=== PATIENT | male | born 1980 | race Caucasian/White ===

== ENCOUNTER → 2016-11-26 | Outpatient (CLI) | payer OTHER ==
--- NOTE | ~2016-11-26 | HC ---
[facility] [place] [address] CONSULTATION Name: ALY MASON Room #: REG [facility]#: [id number] Admission: 11/26/16 Attend Phys: Pete Hurtado MD Discharge: Date of : 78 Report #: [id number] THIS REPORT FOR: //name// CC: SALLIE Hurtado DATE OF SERVICE: 11/26/2016 CHIEF COMPLAINT: Nonhealing diabetic wound to the left foot. HISTORY OF PRESENT ILLNESS: This is a 36-year-old male patient with a history of type 2 diabetes mellitus. He is status post right below knee amputation from previous diabetic foot wound and subsequent infection. He developed ulceration sometime ago involving his left foot. He was followed with local wound care and it did not improve. He ultimately developed osteomyelitis of the left foot including the left fifth metatarsal and has undergone debridement and partial amputation of the left foot due to underlying osteomyelitis and ongoing infection. He was seen and operated on by Dr. Sallie Douglas. He is also currently being followed by Infectious Disease, Dr. Julien Khan. The patient was seen in followup from his surgery that occurred in the first week of 10/2016, was noted to have increased swelling and erythema and drainage. There was concern for additional bony abnormality and he has been referred for adjunctive hyperbaric oxygen therapy for his nonhealing Andrade 3 diabetic foot wound in the hopes of salvaging his limb and preventing a second amputation. PAST MEDICAL HISTORY: Positive for history of hypertension as well as a history of diabetes mellitus. MEDICATIONS: Trazodone, Humalog insulin on a sliding scale, Cymbalta and lisinopril. ALLERGIES: None. SOCIAL HISTORY: The patient has never been a smoker and does not drink alcohol. 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 The patient is single. He currently is living with his parents who accompanied him today. FAMILY HISTORY: Really noncontributory. There is no family history for diabetes, known heart disease or kidney disease. REVIEW OF SYSTEMS: CONSTITUTIONAL: The patient denies fever, chills or weight loss other than [facility] [address] [place] [address] CONSULTATION Name: ALY MASON LUCIA Room #: REG [facility] Osiel.#: [id number] Admission: 11/26/16 Attend Phys: Pete Hurtado MD Discharge: Date of : 78 Report #: [id number] planned weight loss due to very strict adherence to his diet. ENT: The patient denies earache, nasal drainage, sore throat. CARDIOVASCULAR: The patient denies chest pain, palpitations or diaphoresis. PULMONARY: The patient denies cough or shortness of breath. GASTROINTESTINAL: The patient denies nausea, vomiting, diarrhea or abdominal pain. GENITOURINARY: The patient has frequency, urgency of urination. Denies dysuria. ORTHOPEDIC: The patient notes he has a right below knee amputation. He has a prosthesis in place at this time. He has a surgical wound to the left foot and has significant neuropathy and does not feel much below his ankle. Other systems in a 13-point review of systems are negative other than that already mentioned in the history of present illness. PHYSICAL EXAMINATION: VITAL SIGNS: Today include height is 69 inches, weight is 382 pounds, BMI is 56.4, temperature 96.6, pulse 82, blood pressure 146/82. Blood glucose is 90 mg/dL. GENERAL: This is a somewhat chronically ill appearing obese male patient who appears to be in no apparent distress. HEENT: Normocephalic. Nose and throat are clear. Tympanic membranes are intact. NECK: Supple. LUNGS: Clear. HEART: Regular. ABDOMEN: Obese, nontender. EXTREMITIES: Examination of the lower extremities demonstrates a right below knee amputation. He has a prosthesis in place and I have not removed it. He has denied that there is any breakdown or problems with that area. Left foot demonstrates a surgical incision with sutures that remain in place. There is separation in the surgical incision line. There is some granulation tissue and a little bit of drainage. There is no obvious odor. There is significant edema and erythema to the left foot with some fullness to palpation throughout the midportion. I am not able to express any specific drainage and I cannot probe to any specific bony structure at this time. His toenails appear to be thickened. There are no plantar ulcerations noted at this time. CLINICAL IMPRESSION: 1. A Andrade 3 diabetic foot wound, status partial amputation of the left foot. 2. Osteomyelitis of the left foot, status post surgical debridement and continued intravenous antibiotic therapy. RECOMMENDATIONS: At this point in time, I think it would be appropriate and recommended to consider a course of hyperbaric oxygen therapy, would recommend an initial course of 20 treatments at 2.0 atmospheres absolute for a total of 90 minutes per treatment. The patient does not have any contraindications to [facility] [address] [place] [address] CONSULTATION Name: ALY MASON Room #: REG [facility]#: [id number] Admission: 11/26/16 Attend Phys: Pete Hurtado MD Discharge: Date of : 78 Report #: [id number] therapy and we have discussed risks and benefits and he would like to proceed along those lines. I would recommend a chest x-ray and EKG prior to initiating the course of therapy. For local wound care, we will recommend topical Christina to the wound base to be covered with 4 x 4 gauze, Kerlix and then an Juanpablo wrap for compression. He is in an offloading boot, which he should continue to use but to minimize ambulation at this time to allow this to heal better. I think the sutures can be left in place for now. There is certainly no evidence of infection along the suture lines or evidence of any overgrowth of the sutures themselves. He is adherent to a fairly strict diet and is watching his blood sugars carefully at home and states that they are reasonably well controlled. We could consider total contact casting in the future. I would like to see some of the swelling improve first. I have discussed all of these details with the patient and family members and have answered all their questions. I appreciate having been asked to see the patient in consultation. <ELECTRONICALLY SIGNED> By: Reymundo Story MD 11/28/16 [id number] Reymundo Story MD /nt
== END ==
LOC: HYPER 07:13
DX: T87.89 Other complications of amputation stump (principal); E11.621 Type 2 diabetes mellitus with foot ulcer; L97.522 Non-pressure chronic ulcer of other part of left foot with fat layer exposed; E11.69 Type 2 diabetes mellitus with other specified complication; M86.8X7 Other osteomyelitis, ankle and foot; I10 Essential (primary) hypertension; Z79.4 Long term (current) use of insulin; Z89.511 Acquired absence of right leg below knee; Y83.5 Amputation of limb(s) as the cause of abnormal reaction of the patient, or of later complication, without mention of misadventure at the time of the procedure

== ENCOUNTER → 2017-01-15 | Outpatient (CLI) | payer OTHER | LOC: HYPER 07:04 | DX: T81.89XD Other complications of procedures, not elsewhere classified, subsequent encounter (principal); E11.621 Type 2 diabetes mellitus with foot ulcer; L97.522 Non-pressure chronic ulcer of other part of left foot with fat layer exposed; E11.69 Type 2 diabetes mellitus with other specified complication; M86.8X7 Other osteomyelitis, ankle and foot; I10 Essential (primary) hypertension; M86.372 Chronic multifocal osteomyelitis, left ankle and foot; E66.01 Morbid (severe) obesity due to excess calories; Z79.4 Long term (current) use of insulin; Z68.43 Body mass index [BMI] 50.0-59.9, adult; Z89.511 Acquired absence of right leg below knee; Y83.8 Other surgical procedures as the cause of abnormal reaction of the patient, or of later complication, without mention of misadventure at the time of the procedure ==

== ENCOUNTER → 2017-02-06 | Outpatient (CLI) | payer OTHER | LOC: HYPER 08:12 | DX: T87.89 Other complications of amputation stump (principal); E11.621 Type 2 diabetes mellitus with foot ulcer; L97.522 Non-pressure chronic ulcer of other part of left foot with fat layer exposed; E11.69 Type 2 diabetes mellitus with other specified complication; M86.8X7 Other osteomyelitis, ankle and foot; M86.372 Chronic multifocal osteomyelitis, left ankle and foot; I10 Essential (primary) hypertension; E66.01 Morbid (severe) obesity due to excess calories; Z79.4 Long term (current) use of insulin; Z68.43 Body mass index [BMI] 50.0-59.9, adult; Y83.5 Amputation of limb(s) as the cause of abnormal reaction of the patient, or of later complication, without mention of misadventure at the time of the procedure ==

== ENCOUNTER → 2017-02-17 | Outpatient (CLI) | payer OTHER | LOC: HYPER 07:17 | DX: T87.89 Other complications of amputation stump (principal); E11.621 Type 2 diabetes mellitus with foot ulcer; L97.522 Non-pressure chronic ulcer of other part of left foot with fat layer exposed; E11.69 Type 2 diabetes mellitus with other specified complication; M86.8X7 Other osteomyelitis, ankle and foot; M86.372 Chronic multifocal osteomyelitis, left ankle and foot; I10 Essential (primary) hypertension; E66.01 Morbid (severe) obesity due to excess calories; Z68.43 Body mass index [BMI] 50.0-59.9, adult; Z79.4 Long term (current) use of insulin; Z86.19 Personal history of other infectious and parasitic diseases; Z89.511 Acquired absence of right leg below knee; Y83.5 Amputation of limb(s) as the cause of abnormal reaction of the patient, or of later complication, without mention of misadventure at the time of the procedure ==

== ENCOUNTER → 2017-03-04 | Outpatient (CLI) | payer OTHER | LOC: HYPER 07:04 | DX: T81.89XD Other complications of procedures, not elsewhere classified, subsequent encounter (principal); E11.621 Type 2 diabetes mellitus with foot ulcer; L97.522 Non-pressure chronic ulcer of other part of left foot with fat layer exposed; E11.69 Type 2 diabetes mellitus with other specified complication; M86.8X7 Other osteomyelitis, ankle and foot; I10 Essential (primary) hypertension; E66.01 Morbid (severe) obesity due to excess calories; Z79.4 Long term (current) use of insulin; Y83.8 Other surgical procedures as the cause of abnormal reaction of the patient, or of later complication, without mention of misadventure at the time of the procedure ==

== ENCOUNTER → 2017-03-25 | Outpatient (CLI) | payer OTHER | LOC: HYPER 03-24 11:33 | DX: T81.89XD Other complications of procedures, not elsewhere classified, subsequent encounter (principal); E11.621 Type 2 diabetes mellitus with foot ulcer; L97.522 Non-pressure chronic ulcer of other part of left foot with fat layer exposed; E11.69 Type 2 diabetes mellitus with other specified complication; M86.372 Chronic multifocal osteomyelitis, left ankle and foot; M86.8X7 Other osteomyelitis, ankle and foot; I10 Essential (primary) hypertension; E66.01 Morbid (severe) obesity due to excess calories; Z68.43 Body mass index [BMI] 50.0-59.9, adult; Z79.4 Long term (current) use of insulin; Z89.432 Acquired absence of left foot; Y83.8 Other surgical procedures as the cause of abnormal reaction of the patient, or of later complication, without mention of misadventure at the time of the procedure ==

== ENCOUNTER → 2017-05-27 | Outpatient (CLI) | payer OTHER | LOC: HYPER 06:44 | DX: T81.89XD Other complications of procedures, not elsewhere classified, subsequent encounter (principal); E11.621 Type 2 diabetes mellitus with foot ulcer; L97.522 Non-pressure chronic ulcer of other part of left foot with fat layer exposed; E11.69 Type 2 diabetes mellitus with other specified complication; M86.372 Chronic multifocal osteomyelitis, left ankle and foot; E66.01 Morbid (severe) obesity due to excess calories; Z68.43 Body mass index [BMI] 50.0-59.9, adult; Z79.4 Long term (current) use of insulin; Z89.511 Acquired absence of right leg below knee; Y83.8 Other surgical procedures as the cause of abnormal reaction of the patient, or of later complication, without mention of misadventure at the time of the procedure ==

== ENCOUNTER → 2018-03-10 | Outpatient (CLI) | payer OTHER | LOC: HYPER 07:03 | DX: T87.89 Other complications of amputation stump (principal); E11.622 Type 2 diabetes mellitus with other skin ulcer; L89.893 Pressure ulcer of other site, stage 3; L97.811 Non-pressure chronic ulcer of other part of right lower leg limited to breakdown of skin; S81.801A Unspecified open wound, right lower leg, initial encounter; E66.01 Morbid (severe) obesity due to excess calories; Z68.43 Body mass index [BMI] 50.0-59.9, adult; Z79.4 Long term (current) use of insulin; X58.XXXA Exposure to other specified factors, initial encounter; Y93.89 Activity, other specified; Y92.89 Other specified places as the place of occurrence of the external cause; Y99.8 Other external cause status; Y83.5 Amputation of limb(s) as the cause of abnormal reaction of the patient, or of later complication, without mention of misadventure at the time of the procedure ==

== ENCOUNTER → 2018-03-12 | Outpatient (CLI) | payer OTHER | LOC: MRI 09:26 | DX: L89.893 Pressure ulcer of other site, stage 3 (principal); E11.622 Type 2 diabetes mellitus with other skin ulcer; M86.8X6 Other osteomyelitis, lower leg ==

== ENCOUNTER → 2018-09-01 | Outpatient (CLI) | payer OTHER | LOC: HYPER 06:37 | DX: T87.89 Other complications of amputation stump (principal); E11.622 Type 2 diabetes mellitus with other skin ulcer; L97.812 Non-pressure chronic ulcer of other part of right lower leg with fat layer exposed; E66.01 Morbid (severe) obesity due to excess calories; Z68.43 Body mass index [BMI] 50.0-59.9, adult; Z79.4 Long term (current) use of insulin; Y83.5 Amputation of limb(s) as the cause of abnormal reaction of the patient, or of later complication, without mention of misadventure at the time of the procedure ==

== ENCOUNTER → 2018-09-13 | Outpatient (CLI) | payer OTHER | LOC: HYPER 06:47 | DX: T87.81 Dehiscence of amputation stump (principal); E11.622 Type 2 diabetes mellitus with other skin ulcer; L89.890 Pressure ulcer of other site, unstageable; L97.812 Non-pressure chronic ulcer of other part of right lower leg with fat layer exposed; Z79.4 Long term (current) use of insulin; Y83.5 Amputation of limb(s) as the cause of abnormal reaction of the patient, or of later complication, without mention of misadventure at the time of the procedure ==

== ENCOUNTER → 2018-11-25 | Outpatient (CLI) | payer OTHER | LOC: HYPER 09-22 12:35 | DX: T87.81 Dehiscence of amputation stump (principal); E11.622 Type 2 diabetes mellitus with other skin ulcer; L97.812 Non-pressure chronic ulcer of other part of right lower leg with fat layer exposed; L89.893 Pressure ulcer of other site, stage 3; E11.40 Type 2 diabetes mellitus with diabetic neuropathy, unspecified; E66.9 Obesity, unspecified; Z68.43 Body mass index [BMI] 50.0-59.9, adult; Z79.4 Long term (current) use of insulin; Z89.511 Acquired absence of right leg below knee; Y83.5 Amputation of limb(s) as the cause of abnormal reaction of the patient, or of later complication, without mention of misadventure at the time of the procedure ==

== ENCOUNTER → 2019-01-06 | Outpatient (CLI) | payer OTHER | LOC: HYPER 12-23 10:28 | DX: T87.89 Other complications of amputation stump (principal); E11.622 Type 2 diabetes mellitus with other skin ulcer; L89.893 Pressure ulcer of other site, stage 3; L97.812 Non-pressure chronic ulcer of other part of right lower leg with fat layer exposed; L84 Corns and callosities; E66.01 Morbid (severe) obesity due to excess calories; Z68.43 Body mass index [BMI] 50.0-59.9, adult; Z79.4 Long term (current) use of insulin; Y83.5 Amputation of limb(s) as the cause of abnormal reaction of the patient, or of later complication, without mention of misadventure at the time of the procedure ==

== ENCOUNTER → 2019-02-03 | Outpatient (CLI) | payer OTHER | LOC: HYPER 06:51 | DX: T87.81 Dehiscence of amputation stump (principal); E11.622 Type 2 diabetes mellitus with other skin ulcer; L97.812 Non-pressure chronic ulcer of other part of right lower leg with fat layer exposed; E11.40 Type 2 diabetes mellitus with diabetic neuropathy, unspecified; Z79.4 Long term (current) use of insulin; Z89.511 Acquired absence of right leg below knee; Z68.43 Body mass index [BMI] 50.0-59.9, adult; Y83.5 Amputation of limb(s) as the cause of abnormal reaction of the patient, or of later complication, without mention of misadventure at the time of the procedure ==

== ENCOUNTER → 2019-03-08 | Outpatient (CLI) | payer OTHER | LOC: HYPER 06:34 | DX: T87.81 Dehiscence of amputation stump (principal); E11.622 Type 2 diabetes mellitus with other skin ulcer; L97.812 Non-pressure chronic ulcer of other part of right lower leg with fat layer exposed; E11.40 Type 2 diabetes mellitus with diabetic neuropathy, unspecified; Z79.4 Long term (current) use of insulin; Z89.511 Acquired absence of right leg below knee; Y83.5 Amputation of limb(s) as the cause of abnormal reaction of the patient, or of later complication, without mention of misadventure at the time of the procedure ==

== ENCOUNTER → 2020-03-19 | Outpatient (CLI) | payer OTHER | LOC: HYPER 03-12 17:50 | PROVIDERS: ATTEND Emergency Medicine | DX: T87.89 Other complications of amputation stump (principal); E11.622 Type 2 diabetes mellitus with other skin ulcer; L89.894 Pressure ulcer of other site, stage 4; L97.812 Non-pressure chronic ulcer of other part of right lower leg with fat layer exposed; E66.01 Morbid (severe) obesity due to excess calories; Z79.84 Long term (current) use of oral hypoglycemic drugs; Z79.82 Long term (current) use of aspirin; Z68.43 Body mass index [BMI] 50.0-59.9, adult; Z89.511 Acquired absence of right leg below knee; Y83.5 Amputation of limb(s) as the cause of abnormal reaction of the patient, or of later complication, without mention of misadventure at the time of the procedure ==